=== PATIENT | male | born 1960 | race Caucasian/White ===

== ENCOUNTER → 2017-10-25 | Outpatient (CLI) | payer OTHER ==
[2017-10-25 08:48] LABS: Appearance,Urine Clear (Clear); Bilirubin,Urine Negative (Negative); Blood,Urine Negative (Negative); Color,Urine Light Yellow; Glucose,Urine (UA) Negative (Negative); HGB 16.5 gm/dL (13.0-17.5); Ketones,Urine Negative (Negative); Leukocyte Esterase,Urine Negative (Negative); MCH 29.5 pg (25.0-35.0); MCHC 33.8 g/dL (31.0-37.0); MCV 87.4 fL (80.0-100.0); Mean Platelet Volume 6.5; Nitrite,Urine Negative (Negative); PH, Urine 7.5 (5.0-8.0); Platelet Count 306 k/uL (150-450); Protein,Urine Negative (Negative); RDW 12.3 % (11.5-15.5); Specific Gravity,Urine 1.008 (1.001-1.035); Urobilinogen,Urine <2.0 mg/dL (<2.0); WBC 8.3 k/uL (3.8-10.6)
[2017-10-25 10:24] LABS: ALT 52 U/L (21-72); AST 27 U/L (17-59); Albumin 4.3 g/dL (3.5-5.0); Alkaline Phosphatase 47 U/L (38-126); Anion Gap 9 mmol/L; Blood Urea Nitrogen 19 mg/dL (9-20); Calcium 9.9 mg/dL (8.4-10.2); Carbon Dioxide 31 mmol/L (22-30); Chloride 102 mmol/L (98-107); Cholesterol 169 mg/dL (<200); Glucose 95 mg/dL (74-99); HDL Cholesterol 55 mg/dL (40-60); LDL Cholesterol,Calculated 100 mg/dL (0-99); Potassium 5.4 mmol/L (3.5-5.1); Sodium 142 mmol/L (137-145); Total Bilirubin 0.5 mg/dL (0.2-1.3); Total Protein 7.6 g/dL (6.3-8.2); Triglycerides 70 mg/dL (<150)
[2017-10-25 10:54] LABS: Prostate Specific Antigen 1.09 ng/mL (0.00-4.00)
== END | disposition home or self-care (01) ==
LOC: LABWHC1 08:19
PROVIDERS: ATTEND Family Medicine
DX: Z00.00 Encounter for general adult medical examination without abnormal findings (principal)
CPT/HCPCS: 36415; 80053; 80061; 81003; 84153; 85027

== ENCOUNTER → 2017-11-01 | Outpatient (CLI) | payer OTHER ==
[2017-11-01 10:13] LABS: ALT 57 U/L (21-72); AST 29 U/L (17-59); Albumin 4.2 g/dL (3.5-5.0); Alkaline Phosphatase 46 U/L (38-126); Anion Gap 8 mmol/L; Blood Urea Nitrogen 18 mg/dL (9-20); Calcium 10.1 mg/dL (8.4-10.2); Carbon Dioxide 34 mmol/L (22-30); Chloride 99 mmol/L (98-107); Glucose 96 mg/dL (74-99); Potassium 5.6 mmol/L (3.5-5.1); Sodium 141 mmol/L (137-145); Total Bilirubin 0.3 mg/dL (0.2-1.3); Total Protein 7.2 g/dL (6.3-8.2)
== END | disposition home or self-care (01) ==
LOC: LABWHC1 09:26
PROVIDERS: ATTEND Family Medicine
DX: R89.9 Unspecified abnormal finding in specimens from other organs, systems and tissues (principal)
CPT/HCPCS: 36415; 80053

== ENCOUNTER → 2019-12-08 | Outpatient (CLI) | payer BC ==
--- NOTE | 2019-12-09 08:46 | US ---
EXAMINATION TYPE: US carotid duplex BILAT DATE OF EXAM: 12/08/2019 COMPARISON: NONE CLINICAL HISTORY: R09.89 SYMPTOMS INVOLVING RESPIRATORY AND CIRCULATORY SYSTEM. Carotid bruit. Other specified symptoms and signs involving the circulatory and respiratory systems. EXAM MEASUREMENTS: RIGHT: Peak Systolic Velocity (PSV) cm/sec ----- Right CCA: 85.2 ----- Right ICA: 88.6 ----- Right ECA: 95.2 ICA/CCA ratio: 1.0 RIGHT: End Diastole cm/sec ----- Right CCA: 18.3 ----- Right ICA: 31.4 ----- Right ECA: 7.3 LEFT: Peak Systolic Velocity (PSV) cm/sec ----- Left CCA: 92.7 ----- Left ICA: 85.0 ----- Left ECA: 90.5 ICA/CCA ratio: 0.9 LEFT: End Diastole cm/sec ----- Left CCA: 20.2 ----- Left ICA: 30.0 ----- Left ECA: 8.0 VERTEBRALS (direction of flow): Right Vertebral: Antegrade Left Vertebral: Antegrade Rhythm: Normal Hypoechoic area with hyperechoic center seen right neck: 1.3 x 0.6 x 0.3 cm. Hypoechoic area with hyperechoic center seen left neck: 1.0 x 1.0 x 0.5 cm. Intimal thickening seen bilaterally. Hyperechoic plaque seen left bulb and left ICA. No elevated velo cities obtained. IMPRESSION: 1. No significant flow-limiting stenosis based on velocities. 2. Mild atheromatous plaque with diffuse intimal thickening present. 3. Bilateral adenopathy is present Criteria for Assigning % of Stenosis / Diameter reduction (Estimation based on the indirect measurements of the internal carotid artery velocities (ICA PSV). 1. Normal (no stenosis)=ICA PSV < 125 cm/s: ratio < 2.0: ICA EDV<40 cm/s. 2. Less than 50% stenosis=ICA PSV < 125 cm/s: ratio < 2.0: ICA EDV<40 cm/s. 3. 50 to 69% stenosis=ICA PSV of 125 to 230 cm/s: ration 2.0 ? 4.0: ICA EDV 40-100 cm/s. 4. Greater than 70% stenosis to near occlusion= ICA PSV > 230 cm/s: ratio > 4.0: ICA EDV > 100 cm/s. 5. Near occlusion= ICA PSV velocities may be low or undetectable: variable ratio and ICA EDV. 6. Total occlusion=unable to detect flow.
== END | disposition home or self-care (01) ==
LOC: RADUSWWP 16:58
PROVIDERS: ATTEND Family Medicine
DX: I65.22 Occlusion and stenosis of left carotid artery (principal); R59.9 Enlarged lymph nodes, unspecified
CPT/HCPCS: 93880

== ENCOUNTER → 2020-01-18 | Outpatient (CLI) | payer BC ==
--- NOTE | 2020-01-18 08:46 | US ---
EXAMINATION TYPE: US st tissue neck DATE OF EXAM: 01/18/2020 COMPARISON: Carotid ultrasound 12/08/2019 CLINICAL HISTORY: 59-year-old male R59.0 localized enlarged lymph nodes. Carotid US showed lymph nod e. No palpable lumps. TECHNIQUE: Multiple sonographic images of the bilateral neck for assessment of cervical lymphadenopat hy. FINDINGS: Kick Plate Installer notes: Bilateral neck scanned. No abnormal appearing lymph nodes visualized at this time . Lymph node measures up to 1.6 x 0.5 x 0.3 cm on the right. No abnormal cortical thickening. IMPRESSION: No appreciable cervical lymphadenopathy by ultrasound at this time. Both sides of the neck were scann ed. Lymph node on the right measures up to 5 mm short axis. The more prominent 1 cm short axis left-s ided lymph node identified on the 12/08/2019 ultrasound is no longer seen.
== END | disposition home or self-care (01) ==
LOC: RADUSWWP 08:04
PROVIDERS: ATTEND Family Medicine
DX: R59.0 Localized enlarged lymph nodes (principal)
CPT/HCPCS: 76536

== ENCOUNTER → 2020-11-30 | Outpatient (CLI) | payer BC ==
[2020-11-30 09:07] LABS: Basophils % (A) 1 %; Eosinophils # (A) 0.2 k/uL (0-0.7); Eosinophils % (A) 3 %; HCT 47.1 % (39.0-53.0); HGB 15.8 gm/dL (13.0-17.5); Lymphocytes # (A) 1.8 k/uL (1.0-4.8); Lymphocytes % (A) 25 %; MCH 29.8 pg (25.0-35.0); MCHC 33.6 g/dL (31.0-37.0); MCV 88.8 fL (80.0-100.0); Mean Platelet Volume 7.3; Monocytes # (A) 0.4 k/uL (0-1.0); Monocytes % (A) 5 %; Neutrophils # (A) 4.6 k/uL (1.3-7.7); Neutrophils % (A) 65 %; Platelet Count 245 k/uL (150-450); RDW 12.6 % (11.5-15.5); WBC 7.1 k/uL (3.8-10.6)
== END | disposition home or self-care (01) ==
LOC: LABPAT 07:36
PROVIDERS: ATTEND Student in an Organized Health Care Education/Training Program
DX: Z01.818 Encounter for other preprocedural examination (principal); Z20.822 Contact with and (suspected) exposure to COVID-19
CPT/HCPCS: 85025; 93005; U0003; U0005

== ENCOUNTER 2020-12-05 08:17 | Day surgery (SDC) | payer BC ==
[2020-11-30 09:28] VITALS: BMI 23.6
[~2020-12-05 08:17] MED LIST: DEXAMETHASONE SOD PHOSPHATE 4 MG/ML 1 ML VIAL IV ONE; HEPARIN SODIUM,PORCINE 5,000 UNIT/ML 1 ML VIAL SQ PRN; LACTATED RINGERS 1,000 ML IV SCH; LIDOCAINE 1% (10MG/ML) FOR IV START INTRADERMA PRN; MIDAZOLAM 2 MG/2 ML VIAL IV PRN
[2020-12-05 09:15] VITALS: RESP 16
[2020-12-05] MEDS: ONDANSETRON 4 MG/2 ML VIAL IVP ONE ×2 (09:25→12:00)
[2020-12-05] MEDS ORDERED: MIDAZOLAM 2 MG/2 ML VIAL IVP ONE (09:59)
[2020-12-05] MEDS ORDERED: LIDOCAINE 1% INJ 10MG/ML (20 ML MDV) ONE (10:10)
[2020-12-05] MEDS ORDERED: ROPIVACAINE 5 MG/ML 30 ML VIAL ONE (10:10)
[2020-12-05] MEDS ORDERED: GLYCOPYRROLATE 0.2 MG/ML 2 ML VIAL ONE (10:10)
[2020-12-05] MEDS ORDERED: SODIUM CHLORIDE 0.9% (PF) 10 ML VIAL ONE (10:10)
[2020-12-05] MEDS ORDERED: ROCURONIUM 10 MG/ML (5 ML VIAL) IV ONE (10:10)
[2020-12-05] MEDS ORDERED: SUCCINYLCHOLINE CHLORIDE 100 MG/5 ML SYR IV ONE (10:10)
[2020-12-05] MEDS ORDERED: NEOSTIGMINE 1 MG/ML 10 ML VIAL ONE (10:10)
[2020-12-05] MEDS ORDERED: fentaNYL (PF) 50 MCG/ML 2 ML AMP ONE (10:10)
[2020-12-05] MEDS ORDERED: PROPOFOL 10 MG/ML 20 ML VIAL IV ONE (10:10)
[2020-12-05] MEDS ORDERED: BUPIVACAIN-EPI 0.5%-1:200,000 30 ML VIAL SQ ONE ×2 (10:37)
--- NOTE | 2020-12-05 11:39 | P.OP ---
Date of Procedure: 12/05/20 Preoperative Diagnosis: Bilateral inguinal hernia Postoperative Diagnosis: Same Procedure(s) Performed: Robotic assisted bilateral inguinal hernia Anesthesia: ELISE Surgeon: Mina Palacio Condition: stable Disposition: PACU Description of Procedure: Patient is brought operative suite remained in the supine position underwent ge neral endotracheal anesthesia per Department of anesthesia timeout was performed correct patient correct procedure correct site was verified he previously been prepped and draped in usual sterile fashion a descending incision was made skirting umbilicus carried down the fascia which was incised in usual fashion 8 mm robotic port was placed abdomen was insufflated no injuries were noted to more 8 mm ports were placed lateral to this on either side. The robot was docked. Patient was placed in Trendelenburg and there was a large left inguinal hernia and a small right inguinal hernia noted. The left side was approached first the peritoneum was taken down medially to the pubis laterally and posteriorly to the psoas the hernia defect was reduced off the cord structures being careful to leave the cord structures intact. The right side was then approached in a similar fashion and the hernia sac was reduced the dissections did meet in the middle. Pro-instrument maker and repairer mesh was placed on both sides kissing in the middle. The peritoneum was then reapproximated on both sides using 2-0V LOC suture. The needles were removed and midline fascia was closed with an 0 Vicryl with the aid of a Gerard-Martín suture passer. All other ports removed under direct visualization abdomen was desufflated skin was closed with 4-0 Monocryl subcuticular stitches patient tolerated the procedure well no apparent c omplications sterile dressing was applied Plan - Discharge Summary Discharge Rx Participant: Yes New Discharge Prescriptions: No Action Sildenafil Citrate [Viagra] 100 mg PO ONCE PRN PRN Reason: erectile dysfunction Discharge Medication List Sildenafil Citrate [Viagra] 100 mg PO ONCE PRN 11/30/20 [History]
[2020-12-05 11:52] VITALS: TEMP 98
[2020-12-05] MEDS: HYDROmorphone 0.5 MG/0.5 ML SYRINGE IVP PRN ×3 (11:54→12:12)
[2020-12-05] MEDS ORDERED: HYDROcodone/APAP 5-325MG 1 EACH TAB ONE (12:42)
[2020-12-05] MEDS ORDERED: HYDROcodone/APAP 5-325MG 1 EACH TAB PO ONE (12:43)
[2020-12-05 13:03] VITALS: BP 130/78; PULSE 76
== END 2020-12-05 13:38 | disposition home or self-care (01) ==
LOC: OR 08:17
PROVIDERS: ATTEND Student in an Organized Health Care Education/Training Program
DX: K40.20 Bilateral inguinal hernia, without obstruction or gangrene, not specified as recurrent (principal); Z82.49 Family history of ischemic heart disease and other diseases of the circulatory system; Z98.890 Other specified postprocedural states
CPT/HCPCS: 64461; 49650; C1781; J2250; J1644; J1100; J2710; J0690; J2405; J2001; J3010; J2795; J0330; J2704; J1170; 36415; 86850; 86900; 86901

== ENCOUNTER → 2023-08-06 | Day surgery (SDC) | payer BC ==
[2023-08-05 10:57] VITALS: BMI 24.3
[~2023-08-06] MED LIST changes: -DEXAMETHASONE SOD PHOSPHATE 4 MG/ML 1 ML VIAL IV ONE; -HEPARIN SODIUM,PORCINE 5,000 UNIT/ML 1 ML VIAL SQ PRN; -LIDOCAINE 1% (10MG/ML) FOR IV START INTRADERMA PRN; -MIDAZOLAM 2 MG/2 ML VIAL IV PRN; +PROPOFOL 10 MG/ML 20 ML VIAL IV ONE
[2023-08-06 11:44] VITALS: TEMP 97.3
--- NOTE | 2023-08-06 12:39 | P.PCN ---
Date of Procedure: 08/06/23 Procedure(s) Performed: BRIEF HISTORY: Patient is a 63-year-old pleasant male scheduled for an elective colonoscopy as a part of the screening for colon cancer. PROCEDURE PERFORMED: Colonoscopy. PREOPERATIVE DIAGNOSIS: Screening for colon cancer. IV sedation per Anesthesia. PROCEDURE: After informed consent was obtained, the patient, was brought into the endoscopy unit. IV sedation was administered by Anesthesia under continuous monitoring. Digital rectal examination was normal. Initially the Olympus CF-160 flexible video colonoscope was then inserted in the rectum, gradually advanced into the cecum without any difficulty. Careful examination was performed as the scope was gradually being withdrawn. Ileocecal valve and the appendiceal orifice were visualized and appeared normal. Prep was excellent. Mucosa of the cecum, ascending colon, transverse colon, descending colon, sigmoid colon, and rectum appeared normal. Retroflexion was performed in the rectum and no lesions were seen. The patient tolerated the procedure well. IMPRESSION: Normal-appearing colon from rectum to cecum with no evidence of colorectal neoplasia . RECOMMENDATIONS: Findings of this examination were discussed with the patient as well as his family. He was advised to have a repeat screening colonoscopy in 10 years.
[2023-08-06 12:48] VITALS: RESP 12
[2023-08-06 13:09] VITALS: BP 113/72; PULSE 77
== END ==
LOC: ORWHC2ENDO 10:55
PROVIDERS: ATTEND Internal Medicine Gastroenterology
DX: Z12.11 Encounter for screening for malignant neoplasm of colon (principal); I73.9 Peripheral vascular disease, unspecified; E78.5 Hyperlipidemia, unspecified; Z79.82 Long term (current) use of aspirin; Z98.890 Other specified postprocedural states; Z79.899 Other long term (current) drug therapy
CPT/HCPCS: 45378; J2704